=== PATIENT | male | born 2000 | race Hispanic/Latino ===

== ENCOUNTER 2024-09-16 15:21 | Emergency (ER) | payer SELFPAY ==
[~2024-09-16] VITALS: Ht 162.6 cm; Wt 88.1 kg
[2024-09-16 15:26] VITALS: BP 127/78; PULSE 92; RESP 16; TEMP 98; O2SAT 99
--- NOTE | 2024-09-16 16:03 | ERN ---
General Chief Complaint: Animal Bite Stated Complaint: ANIMAL BITE Time Seen by MD: 15:28 Time Seen by Midlevel: 15:28 Source: patient History of Present Illness Initial Comments 24-year-old male who presents to the emergency department due to a bat bite on the finger. Patient reports he had captured a bat and in the process of transferring him he was in a net and patient felt a bite/prick sensation to the finger. Patient denies any nausea, vomiting, fever, pain, numbness or further associated symptoms. Patient denies significant past medical history. Allergies: Coded Allergies: No Known Drug Allergies (Unverified Allergy, Unknown, 09/16/24) Past Medical History Past Medical History: No Pertinent History Past Surgical History: None ROS Dictation Constitutional: Negative for fever,chills, and weight loss Eyes: Negative for injury, pain,redness, and discharge ENT: Negative for injury,pain or swelling Cardiovascular: Negative for chest pain, palpitations, and edema Respiratory: Negative for shortness of breath, cough, and wheezing, Abdomen/GI: Negative for abdominal pain, nausea, vomiting, diarrhea, and constipation Back: Negative for injury and pain : Negative for painful urination, bleeding or discharge MS/Extremity: Positive for an animal bite to the finger Negative for injury and deformity Skin: Negative for rash, and discoloration Neuro: Negative for headache, weakness, numbness, tingling, and seizure Psych: Negative for suicide ideation, homicidal ideation, and hallucinations Physical Exam Physical Exam Dictation General: awake, alert, no acute distress Head/Face: Normocephalic, atraumatic Eyes: PERRL, EOMI, normal conjuctiva ENT: oral cavity clear, oral mucosa moist Neck: Supple, normal range of motion Cardiovascular: RRR, normal S1/S2 Respiratory: CTAB, no respiratory distress Skin: Warm, dry, normal turgor, no rash MS/Extremity: Pulses equal, no cyanosis, neurovascular intact, FROM Neuro: COAx4, GCS 15, strength 5/5, CN 2-12 intact, normal cerebellar exam, normal gait Psych: Normal behavior, mood, and affect normal MDM MDM: Differential diagnosis: Animal bite, allergic reaction, requiring rabies prophylaxis Rationale: 24-year-old male who presents to the emergency department due to a bat bite on the finger. Patient reports he had captured a bat and in the process of transferring him he was in a net and patient felt a bite/prick sensation to the finger. Patient denies any nausea, vomiting, fever, pain, nu mbness or further associated symptoms. Patient denies significant past medical history. Per physical examination patient is in no acute distress, nonlabored breathing, no wounds noted to the digits, no active bleeding. Patient was administered rabies vaccination and tetanus. Patient was educated on rabies vaccination series anything to go to the Healthcare Department. Advised to follow up with PCP. Return to the emergency department if any worsening symptoms. Patient verbalized understanding. Patient stable for discharge. There are no social concerns with this patient. I independently interpreted the test that were performed, results were reviewed by me and considered findings on radiology if ordered. Medical management and examination interpretation discussions were had by me with other qualified healthcare professionals as indicated for the patient's care. ED Course Orders Procedure Category Date Status Time Tetanus,Diphtheria PHA 09/16/24 Complete Tox [Adult] (Diphther 16:00 Rabies Vacc, Human PHA 09/16/24 Complete Diploid/Pf (Imovax Ra 16:00 Current Medications Medications (Trade) Dose Ordered Sig/Manuel Route PRN Reason Start Time Stop Time Status Last Admin Dose Admin Rabies Vaccine Human Diploid Cell (Imovax Rabies Vaccine Vial) 2.5 unit ONCE ONCE IM 09/16/24 16:00 09/16/24 16:01 DC 09/16/24 16:10 Tetanus/ Diphtheria Toxoids Adsorbed (DiphthERIA-teTANUS TOXOID [ADULT]/ DECAVAC) 0.5 ml ONCE ONCE IM 09/16/24 16:00 09/16/24 16:01 DC 09/16/24 16:12 Vital Signs Date Time Temp Pulse Resp B/P (MAP) Pulse Ox O2 Delivery O2 Flow Rate FiO2 09/16/24 15:26 98.1 92 16 127/78 99 Room Air* 0 21 09/16/24 15:24 98.1 92 16 127/78 99 Room Air 0 DX & DISP Disposition: Discharge Departure Impression: Primary Impression: Bat bite of finger Condition: Stable Referrals: SELF,REFERRAL (PCP) I performed the substantive portion of the visit. I have reviewed and personally made and approve the management plan that is documented in the notes by myself or the ASA. I acknowledge full responsibility for the patient's management plan. LEXI CONTRERAS Sep 16, 2024 16:03
[2024-09-16] MEDS: RABIES VACC, HUMAN DIPLOID/PF 2.5 UNIT VIAL IM ONE (16:10)
[2024-09-16] MEDS: teTANUS/diphthERIA TOXOID [ADULT] 0.5 ML VIAL IM ONE (16:12)
== END 2024-09-16 16:24 | disposition home or self-care (01) ==
LOC: EDH 15:21
DX: S61.238A Puncture wound without foreign body of other finger without damage to nail, initial encounter (principal); Z20.3 Contact with and (suspected) exposure to rabies; W55.81XA Bitten by other mammals, initial encounter; Y93.89 Activity, other specified; Y92.89 Other specified places as the place of occurrence of the external cause; Y99.8 Other external cause status
CPT/HCPCS: 90471; 90472; 90675; 90714; 99284